=== PATIENT | male | born 1985 | race Caucasian/White ===

== ENCOUNTER 2016-10-23 10:26 | Emergency (ER) | payer OTHER ==
--- NOTE | 2016-10-23 10:48 | UCPHY ---
H & P Time Seen by Provider: 10/23/16 10:45 Patient Type: New HPI/ROS: CHIEF COMPLAINT: Sore throat HISTORY OF PRESENT ILLNESS: The patient is a 31-year-old male who presents emergency department sore throat. It is slowly worsened over the past few days. He feels more pain on the right than the left. It is worse with swallowing. He describes his pain is moderate. No fevers or chills. No nausea or vomiting. No abdominal pain. No sick contacts at home. The patient does have a 2-year- old son. Patient smokes. REVIEW OF SYSTEMS: My complete review of systems is negative except as mentioned in the HPI. Past Medical/Surgical History: Negative Past surgical history: Negative Social History: Patient smokes. The patient recently stopped drinking alcohol Physical Exam: Vitals noted. Mild tachycardia. GENERAL: Well-appearing, in no acute distress, alert. HEENT: Eyes normal to inspection, no signs of dehydration. Patient has diffuse pharyngeal erythema. He has bilateral tonsillar discharge which is greater on the right. There is no visible mass. No asymmetry. Uvula is midline. NECK: No thyromegaly, mild bilateral anterior lymphadenopathy, supple. RESPIRATORY: Clear to auscultation bilaterally, no rales, rhonchi or wheezing. CVS: Regular rate and rhythm, no rubs, murmurs, or gallops. ABDOMEN: Soft, nontender, nondistended, no organomegaly. BACK: Normal to inspection, no CVA tenderness. SKIN: Normal color, no rash, warm, dry. No pallor. EXTREMITIES: No pedal edema, no calf tenderness, no Homans sign or cords, no joint swelling. NEURO/PSYCH: Alert and oriented, normal mood and affect, normal motor sensory exam. Medical Decision Making ED Course/Re-evaluation: I discussed possible etiologies with the patient. Patient will be given penicillin RX and a single dose of Decadron at urgent care. The patient was given warnings prior to leaving. He will return with worsening symptoms. He is advised to stop smoking. Differential Diagnosis: My differential includes but is not limited to pharyngitis, retropharyngeal abscess, peritonsillar abscess, mono, dehydration, bacteremia, sepsis Departure - Departure Disposition: Home, Routine, Self-Care Clinical Impression: Pharyngitis Qualifiers: Pharyngitis/tonsillitis etiology: unspecified etiology Qualified Code(s): J02.9 - Acute pharyngitis, unspecified Condition: Good Instructions: Pharyngitis (ED) Additional Instructions: Return with increasing pain, significant pain worsening 1 side, persistent fever , vomiting or any other concerns. Take your entire course of antibiotics. Referrals: Annie Rubalcava MD [Medical Doctor] - 5-7 days, call for appt. - PQRS PQRS Measurement: NA
[2016-10-23 10:54] VITALS: BP 148/81; PULSE 110; RESP 20; TEMP 98.4; O2SAT 98
[2016-10-23] MEDS ORDERED: DEXAMETHASONE 4 MG TAB PO ONE (10:55)
== END 2016-10-23 11:18 | disposition home or self-care (01) ==
LOC: CED 10:26
DX: J02.9 Acute pharyngitis, unspecified (principal)
CPT/HCPCS: 99203-PO; G0463-PO

== ENCOUNTER 2017-10-10 13:03 | Emergency (ER) | payer OTHER ==
[2017-10-10 13:22] VITALS: RESP 16; TEMP 99.3
--- NOTE | 2017-10-10 13:35 | EDPHY ---
H & P Stated Complaint: RT. posterior neck,abcess started aprox1 wk that has increased in size,eryt HPI/ROS: CHIEF COMPLAINT: Lump on HISTORY OF PRESENT ILLNESS: 32-year-old male with a 1 week history of gradually enlarging lump on the right posterior neck. He has had similar masses in the past, but they have all was drained in the shower. This 1 has continued to enlarge and has become red and painful. He notices a swollen lymph gland on the right side of his neck, anteriorly. He does not have sore throat or difficulty breathing. No earache. No headache. No neck pain. REVIEW OF SYSTEMS: A ten point review of systems was performed and is negative with the exception of the items mentioned in the HPI. Past medical history: Negative Past surgical history: Negative Social history: He is with a 1-year-old son. 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 He smokes half pack of cigarettes daily. He drinks 3-5 beers daily--less than in the past. General Appearance: Alert. Vital signs reviewed. Heart rate 110 at triage. Blood pressure 136/97. Eyes: Pupils equal and round, no conjunctival injection, no discharge. Anicteric. ENT, Mouth: Mucous membranes are moist, no oropharyngeal erythema or edema. Right TM normal. Neck: Mild anterior right-sided lymphadenopathy, trachea midline. There is a 2 x 3 cm tender fluctuant mass on the right posterolateral neck with some crusting. The overlying skin is erythematous and mildly warm. Respiratory: Lungs are clear to auscultation; no wheezes, rales, or rhonchi. Cardiovascular: Regular rate and rhythm; no murmur, rub, or gallop. Not tachycardic at the time of my evaluation. Gastrointestinal: Abdomen is soft and nontender, no masses or organomegaly, bowel sounds normal. Skin: Warm and dry, normal color. Neurological: Alert and oriented. Moving all four extremities easily and equally. Psychiatric: Normal affect. - Medical/Surgical History Hx Asthma: Yes Hx Chronic Respiratory Disease: No Hx Diabetes: No Hx Cardiac Disease: No Hx Renal Disease: No Hx Cirrhosis: No Hx Alcoholism: No Hx HIV/AIDS: No Hx Splenectomy or Spleen Trauma: No Other PMH: PCP none. denies surgeries. States "heavy alocohol use prior to 2017" - Social History Smoking Status: Heavy smoker Constitutional: Initial Vital Signs Temperature (C) 37.4 C 10/10/17 13:13 Heart Rate 110 H 10/10/17 13:13 Respiratory Rate 16 10/10/17 13:13 Blood Pressure 136/97 H 10/10/17 13:13 O2 Sat (%) 95 10/10/17 13:13 O2 Delivery Mode Room Air Allergies/Adverse Reactions: No Known Allergies Allergy (Verified 10/10/17 13:13) Home Medications: Medication Instructions Recorded Cephalexin [Keflex] 500 mg PO TID #21 cap 10/10/17 Doxycycline Hyclate [Doxycycline] 100 mg PO BID #14 cap 10/10/17 Hydrocodone/APAP 5/325 [[place] 1 - 2 tab PO Q4 PRN #10 tab 10/10/17 5/325 (RX)] Medical Decision Making Procedures: Incision and drainage: Risks and benefits of procedure were explained to the patient and he verbally consented. Using sterile technique the 2 x 3 cm abscess on the right posterior lateral neck was cleaned and draped. Area was anesthetized using 2% lidocaine without epinephrine. A #11 Blade was used to incise the abscess. Copious amount of purulent drainage was obtained. Septations were broken apart and the abscessed was irrigated. Packing was placed. Light dressing was applied. Culture was obtained and sent to the lab. Patient tolerated the procedure well. ED Course/Re-evaluation: Incision and drainage of neck abscess. Abscess was packed. The patient was placed on antibiotics out of concern that the septations had not been completely disrupted during the I and D procedure. Wound culture sent. This patient has a history of previous similar abscess formation and spontaneous drainage. He is referred to [facility] for further evaluation. He is advised to return for packing removal. Danger signs were reviewed. He and his also requested information about alcohol treatment. They were given local referrals. Differential Diagnosis: DDX includes but is not limited to abscess, lymphadenopathy, cellulitis, soft tissue mass. - Data Points Medications Given: Discontinued Medications Diphtheria/Tetanus/Acell Pertussis (Boostrix) 0.5 ml IM .ONCE ONE Stop: 10/10/17 13:49 Last Admin: 10/10/17 13:52 Dose: 0.5 ml Departure - Departure Disposition: Home, Routine, Self-Care Clinical Impression: Abscess Condition: Good Instructions: Cephalexin (By mouth), Doxycycline (By mouth), Abscess (ED) Additional Instructions: There is packing in the abscess on your neck. This should be removed in the next 2-3 days. I am referring you to the [facility] Disease [facility] and the packing can be removed there if you can get an appointment on Thursday, Thursday at the latest. If not. You can return here and have the packing removed and the wound rechecked. As we discussed, I am starting you on antibiotics. Hopefully all of the purulence was drained out of the abscess but it is difficult to be 100% certain about that. The culture that was sent will be resulted in 2-3 days. This will give us information about the type of bacteria causing your abscesses to form. I am giving you some information about resources for alcohol treatment. Referrals: AA Hotline [Outside] - As per Instructions [facility] [Outside] - As per Instructions Brice Bonilla MD [Primary Care Provider] - As per Instructions Lorenzo King MD [Medical Doctor] - As per Instructions Stand Alone Forms: Work Excuse Prescriptions: Cephalexin [Keflex] 500 mg PO TID #21 cap Doxycycline Hyclate [Doxycycline] 100 mg PO BID #14 cap Hydrocodone/APAP 5/325 [[place] 5/325 (RX)] 1 - 2 tab PO Q4 PRN #10 tab PRN Reason: pain
[2017-10-10] MEDS ORDERED: TDAP ADULT 0.5 ML INJ (BOOSTRIX) IM ONE (13:48)
[2017-10-10 15:17] VITALS: BP 124/82; PULSE 95; O2SAT 94
== END 2017-10-10 15:15 | disposition home or self-care (01) ==
LOC: CED 13:03
PROC: 0H94XZZ Drainage of Neck Skin, External Approach (ICD-10-PCS; principal; 2017-10-10)
DX: L02.11 Cutaneous abscess of neck (principal); F17.210 Nicotine dependence, cigarettes, uncomplicated; J45.909 Unspecified asthma, uncomplicated; F17.200 Nicotine dependence, unspecified, uncomplicated; Z23 Encounter for immunization

== ENCOUNTER 2017-10-13 14:07 | Emergency (ER) | payer OTHER ==
[2017-10-13 14:24] VITALS: BP 129/80; PULSE 82; RESP 16; TEMP 98.1; O2SAT 96
--- NOTE | 2017-10-13 14:40 | EDPHY ---
H & P Time Seen by Provider: 10/13/17 14:26 HPI/ROS: CHIEF COMPLAINT: Wound recheck HISTORY OF PRESENT ILLNESS: Patient is a 32-year-old male who presents emergency department to have his wound recheck. He was seen in the emergency department on 10/10/2017. He had an I&D and wound packing. He is currently taking doxycycline and Keflex. Patient states that he change the dressing yesterday but kept the packing in place. He has an appoint with fractures disease tomorrow. He denies any malaise or fever. No neck pain. No headache. No nausea or vomiting. REVIEW OF SYSTEMS: My complete review of systems is negative except as mentioned in the HPI. Past Medical/Surgical History: Denies Past surgical history: Denies Smoking Status: Heavy smoker Physical Exam: 36.7, 129/80, 80, 16, 96% on room air General Appearance: Alert and no distress. Head: Pupils equal. Normal. Neck: The patient's neck dressing is clean dry and intact. The dressing was removed. There is the I&D site that has no surrounding erythema or warmth. The packing is in place. There is a small amount of pus on the packing. Respiratory: No respiratory distress. Cardiac: regular rate and rhythm. Extremities: Full range of motion, normal appearing. Skin: No rashes or lesions. Neuro: Alert. Normal mood and affect. Constitutional: Initial Vital Signs Temperature (C) 36.7 C 10/13/17 14:18 Heart Rate 82 10/13/17 14:18 Respiratory Rate 16 10/13/17 14:18 Blood Pressure 129/80 H 10/13/17 14:18 O2 Sat (%) 96 10/13/17 14:18 O2 Delivery Mode Room Air Allergies/Adverse Reactions: No Known Allergies Allergy (Verified 10/13/17 14:18) Home Medications: Medication Instructions Recorded Cephalexin [Keflex] 500 mg PO TID #21 cap 10/10/17 Doxycycline Hyclate [Doxycycline] 100 mg PO BID #14 cap 10/10/17 Hydrocodone/APAP 5/325 [[place] 1 - 2 tab PO Q4 PRN #10 tab 10/10/17 5/325 (RX)] Medical Decision Making ED Course/Re-evaluation: In the emergency department I discussed possible etiologies with the patient. I answered his questions. Patient will have his packing replaced. He consented. Procedure: Packing change Patient consented to the procedure. The old packing was removed. New one- quarter-inch nonoperative gauze was packed into the incision and drainage site. Patient tolerated the procedure well. He will continue to take his antibiotics. He will keep his appointment for Infectious Disease tomorrow. He is given warnings prior to leaving. He will return with worsening symptoms. Differential Diagnosis: My differential includes but is not limited to abscess, cellulitis, adenitis, bacteremia, sepsis Departure - Departure Disposition: Home, Routine, Self-Care Clinical Impression: Visit for wound check Condition: Good Instructions: Abscess (ED) Additional Instructions: Keep your appointment with Infectious Disease tomorrow. Return with worsening symptoms. Continue to take your antibiotics as directed. Referrals: Brice Bonilla MD [Primary Care Provider] - As per Instructions Lorenzo King MD [Medical Doctor] - 1 day without fail
== END 2017-10-13 14:55 | disposition home or self-care (01) ==
LOC: CED 14:07
DX: Z48.01 Encounter for change or removal of surgical wound dressing (principal); F17.200 Nicotine dependence, unspecified, uncomplicated